=== PATIENT | male | born 1950 | race African-American/Black ===

== ENCOUNTER 2018-09-16 20:20 | Emergency (ER) | payer OTHER, MEDICARE ==
[~2018-09-16] VITALS: Ht 190.5 cm; Wt 74.8 kg
[2018-09-16 20:27] VITALS: Ht 190.5 cm; Wt 74.8 kg
[2018-09-16 22:55] VITALS: BP 136/84
== END 2018-09-16 22:55 | disposition home or self-care (01) ==
LOC: ED 20:20
DX: C34.90 Malignant neoplasm of unspecified part of unspecified bronchus or lung (principal); R07.89 Other chest pain; I10 Essential (primary) hypertension; I48.91 Unspecified atrial fibrillation; Z88.0 Allergy status to penicillin
CPT/HCPCS: J2270; J2405; Q0092